=== PATIENT | female | born 1995 | race American Indian/Alaskan Native ===

== ENCOUNTER 2021-03-22 16:28 | Emergency (ER) | payer MEDICAID ==
[2021-03-22 17:11] VITALS: BP 108/67
--- NOTE | 2021-03-22 18:52 | Emergency Department Report ---
- General Chief Complaint: Dyspnea/Respdistress Stated Complaint: HEADACHE CHESTPAIN CHILLS Time Seen by Provider: 03/22/21 18:47 Source: patient Mode of arrival: Wheelchair Limitations: No Limitations - History of Present Illness Initial Comments: CC: headache, cough, chills HPI: This is a 26 yo female with hx of tobacco dependence and multiple sclerosis who presents with headache, cough, chills, body aches. She is concerned for COVID 19 infection with 2 young children at home. Positive fever. Neurologist Kirsten Martell She is not vaccinated for COVID-19. MD Complaint: fever, cough, other (Headache body aches) -: Gradual (Several days) Severity: mild Consistency: constant Improves With: nothing Worsens With: nothing Associated Symptoms: fever, chills, myalgias, cough - Related Data Previous Rx's Medication Instructions Recorded Last Taken Type DOXYCYCLINE Hyclate [Vibramycin 100 mg PO Q12HR 7 Days #14 capsule 03/22/21 Unknown Rx CAP] Allergies Allergy/AdvReac Type Severity Reaction Status Date / Time No Known Allergies Allergy Unverified 08/13/20 11:37 ED Review of Systems ROS: Stated complaint: HEADACHE CHESTPAIN CHILLS Other details as noted in HPI Comment: All other systems reviewed and negative Constitutional: chills, fever, malaise Respiratory: cough Gastrointestinal: denies: abdominal pain, nausea, vomiting ED Past Medical Hx - Past Medical History Previous Medical History?: Yes Additional medical history: MS - Surgical History Past Surgical History?: No - Social History Smoking Status: Current Every Day Smoker Substance Use Type: None - Medications Home Medications: Home Medications Medication Instructions Recorded Confirmed Last Taken Type DOXYCYCLINE Hyclate [Vibramycin 100 mg PO Q12HR 7 Days #14 capsule 03/22/21 Unknown Rx CAP] ED Physical Exam - General Limitations: No Limitations General appearance: alert, in no apparent distress - Head Head exam: Present: atraumatic, normocephalic - Eye Eye exam: Present: normal appearance - ENT ENT exam: Present: mucous membranes moist - Neck Neck exam: Present: normal inspection, full ROM - Respiratory Respiratory exam: Present: normal lung sounds bilaterally. Absent: respiratory distress, wheezes, rales, rhonchi, stridor - Cardiovascular Cardiovascular Exam: Present: regular rate, normal rhythm, normal heart sounds. Absent: systolic murmur, diastolic murmur, rubs, gallop - GI/Abdominal GI/Abdominal exam: Present: soft, normal bowel sounds. Absent: distended, tenderness, guarding, rebound - Extremities Exam Extremities exam: Present: normal inspection - Neurological Exam Neurological exam: Present: alert, oriented X3 - Psychiatric Psychiatric exam: Present: normal affect, normal mood - Skin Skin exam: Present: warm, dry, intact, normal color. Absent: rash ED Course Vital Signs 03/22/21 17:09 Temperature 99.7 F H Pulse Rate 81 Respiratory 18 Rate Blood Pressure 108/67 O2 Sat by Pulse 99 Oximetry ED Medical Decision Making - Medical Decision Making Acute bronchitis, viral syndrome: Antibiotics are indicated with history of tobacco use, doxycycline prescribed. Patient given referral to primary care physician. Critical care attestation.: If time is entered above; I have spent that time in minutes in the direct care of this critically ill patient, excluding procedure time. ED Disposition Clinical Impression: Acute bronchitis, Tobacco dependence, Suspected COVID-19 virus infection Disposition: HOME / SELF CARE / HOMELESS Is pt being admited?: No Does the pt Need Aspirin: No Condition: Stable Instructions: Acute Bronchitis (ED), Acute Bronchitis, Adult, [id number] Additional Instructions: Please obtain COVID-19 testing Prescriptions: DOXYCYCLINE Hyclate [Vibramycin CAP] 100 mg PO Q12HR 7 Days #14 capsule Referrals: KULWANT AGARWAL MD [Staff Physician] - 3-5 Days Forms: Work/School Release Form(ED)
== END 2021-03-22 19:00 | disposition home or self-care (01) ==
LOC: ED 16:28
DX: J20.9 Acute bronchitis, unspecified (principal); F17.200 Nicotine dependence, unspecified, uncomplicated; Z20.822 Contact with and (suspected) exposure to COVID-19
CPT/HCPCS: 99282